=== PATIENT | male | born 1960 | race Caucasian/White ===

== ENCOUNTER 2017-12-12 10:38 | Inpatient (IN) | payer MEDICAID, OTHER ==
[~2017-12-12] VITALS: Ht 170.2 cm; Wt 69.7 kg
[2017-12-12] MEDS ORDERED: PANTOPRAZOLE 80 MG in SODIUM CHLORIDE 0.9% 100 ML IV SCH (10:49)
[2017-12-12] MEDS ORDERED: PANTOPRAZOLE 80 MG in SODIUM CHLORIDE 0.9% 50 ML IVPB ONE (10:49)
[2017-12-12] MEDS ORDERED: SODIUM CHLORIDE FLUSH 10ML SYR IVF ONE (11:00)
[2017-12-12] MEDS ORDERED: SODIUM CHLORIDE 0.9% 1,000ML IVBOLUS ONE (11:00)
[2017-12-12 11:38] LABS: INTERNATIONAL NORMALIZED RATIO 1.49 (0.93-1.1); PROTHROMBIN TIME 15.2 Seconds (9.6-11.5)
[2017-12-12 11:40] LABS: ALANINE AMINOTRANSFERASE 62 U/L (12-78); ALBUMIN 3.6 g/dL (3.4-5.0); ANION GAP 10 mmol/L (5-15); CALCIUM 8.7 mg/dL (8.5-10.1); CHLORIDE 97 mmol/L (98-107)
[2017-12-12 11:42] LABS: ALKALINE PHOSPHATASE 56 U/L (45-117); BILIRUBIN,TOTAL 4.8 mg/dL (0.2-1.0); TOTAL PROTEIN 8.4 g/dL (6.4-8.2)
[2017-12-12 12:04] LABS: BASOPHILS # (AUTO) 0.03 x10^3/uL (0-0.1); BASOPHILS % (AUTO) 1 % (0-1); EOSINOPHILS # (AUTO) 0.01 x10^3/uL (0-0.4); EOSINOPHILS % (AUTO) 0 % (1-7); LYMPHOCYTES # (AUTO) 0.88 x10^3/uL (1-3.4); LYMPHOCYTES % (AUTO) 14 % (22-44); MD SCAN; MEAN CORPUSCULAR HEMOGLOBIN 34.3 pg (27.5-34.5); MEAN CORPUSCULAR HGB CONC 34.5 g/dL (33.2-36.2); MEAN CORPUSCULAR VOLUME 99.4 fL (81-97); MEAN PLATELET VOLUME 9.3 fL (7.4-10.4); MONOCYTES # (AUTO) 0.54 x10^3/uL (0.2-0.8); MONOCYTES % (AUTO) 9 % (2-9); NEUTROPHILS # (AUTO) 4.71 x10^3/uL (1.8-6.8); NEUTROPHILS % (AUTO) 76 % (42-75); RED BLOOD COUNT 3.84 x10^6/uL (4.38-5.82); RED CELL DISTRIBUTION WIDTH 15.1 % (9.4-14.8)
[2017-12-12 12:06] LABS: PLATELET COUNT 45 x10^3/uL (130-400)
[2017-12-12] MEDS ORDERED: ONDANSETRON 2MG/ML, 2ML IVPush PRN (13:00)
[2017-12-12] MEDS ORDERED: PROMETHAZINE 25 MG/ML, 1ML IM PRN (13:00)
[2017-12-12] MEDS ORDERED: THIAMINE 200 MG in SODIUM CHLORIDE 0.9% 50 ML IV ONE (13:30)
[2017-12-12] MEDS: SODIUM CHLORIDE 0.9% 1,000 ML IV SCH ×2 (15:57→23:57)
[2017-12-12] MEDS: NICOTINE 14MG/24 HR PATCH.TD24 TD SCH (16:36)
[2017-12-12] MEDS: PANTOPRAZOLE 80 MG in SODIUM CHLORIDE 0.9% 100 ML IV SCH (16:37)
[2017-12-12 16:53] LABS: TOTAL IRON BINDING CAPACITY 256 mcg/dL (250-450)
[2017-12-12] MEDS ORDERED: LORazepam 1MG TABLET PO PRN (17:00)
[2017-12-12 17:03] LABS: % IRON SATURATION 94 % (20-55); IRON LEVEL 241 mcg/dL (65-175)
[2017-12-12 19:29] VITALS: BP_SYST 83; BP_SYST 85; BP_DIAS 53; BP_DIAS 57
[2017-12-12] MEDS ORDERED: SODIUM CHLORIDE 0.9%, 500ML IVBOLUS ONE (20:00)
[2017-12-12 20:50] VITALS: BP 99/64
[2017-12-13 02:09] VITALS: BP 104/58
[2017-12-13] MEDS: PANTOPRAZOLE 80 MG in SODIUM CHLORIDE 0.9% 100 ML IV SCH (02:47)
[2017-12-13 03:11] LABS: MEAN CORPUSCULAR HEMOGLOBIN 33.9 pg (27.5-34.5); MEAN CORPUSCULAR VOLUME 99.7 fL (81-97); MEAN PLATELET VOLUME 9.5 fL (7.4-10.4); RED BLOOD COUNT 2.89 x10^6/uL (4.38-5.82); RED CELL DISTRIBUTION WIDTH 15.2 % (9.4-14.8)
[2017-12-13 03:13] LABS: PLATELET COUNT 40 x10^3/uL (130-400)
[2017-12-13 03:14] LABS: ALANINE AMINOTRANSFERASE 45 U/L (12-78); ALBUMIN 2.8 g/dL (3.4-5.0); ANION GAP 9 mmol/L (5-15); CALCIUM 7.2 mg/dL (8.5-10.1); CHLORIDE 103 mmol/L (98-107)
[2017-12-13 03:41] LABS: ALKALINE PHOSPHATASE 42 U/L (45-117); TOTAL PROTEIN 6.4 g/dL (6.4-8.2)
[2017-12-13 04:27] LABS: BASOPHILS # (AUTO) 0.04 x10^3/uL (0-0.1); BASOPHILS % (AUTO) 1 % (0-1); EOSINOPHILS # (AUTO) 0.05 x10^3/uL (0-0.4); EOSINOPHILS % (AUTO) 1 % (1-7); LYMPHOCYTES # (AUTO) 1.35 x10^3/uL (1-3.4); LYMPHOCYTES % (AUTO) 25 % (22-44); MD SCAN; MONOCYTES % (AUTO) 9 % (2-9); NEUTROPHILS # (AUTO) 3.48 x10^3/uL (1.8-6.8); NEUTROPHILS % (AUTO) 64 % (42-75)
[2017-12-13 06:50] VITALS: BP 102/64
[2017-12-13 07:21] LABS: FREE T4 (FREE THYROXINE) 0.75 ng/dL (0.76-1.46)
[2017-12-13] MEDS: SODIUM CHLORIDE 0.9% 1,000 ML IV SCH ×2 (08:30→16:14)
[2017-12-13] MEDS: FOLIC ACID 1 MG TABLET PO SCH (09:56)
[2017-12-13] MEDS: THIAMINE 100MG TABLET PO SCH (09:56)
[2017-12-13] MEDS: POTASSIUM CHLORIDE 20 MEQ TAB.ER.PRT PO SCH ×2 (09:56→19:59)
[2017-12-13] MEDS: MULTIVITAMIN 1 TABLET PO SCH (09:56)
[2017-12-13 14:37] VITALS: BP 107/66
[2017-12-13] MEDS: NICOTINE 14MG/24 HR PATCH.TD24 TD SCH (16:08)
[2017-12-13] MEDS: PANTOPRAZOLE 40 MG IV IVPush SCH (16:08)
[2017-12-13] MEDS ORDERED: MOVIPREP POWDER 1 PREP KIT PO SCH (19:00)
[2017-12-13 19:41] VITALS: BP 103/69
[2017-12-13] MEDS: MOVIPREP POWDER 1 PREP KIT PO SCH (19:58)
[2017-12-14 01:24] VITALS: BP 111/72
[2017-12-14] MEDS: SODIUM CHLORIDE 0.9% 1,000 ML IV SCH ×3 (01:37→16:34)
[2017-12-14] MEDS: PANTOPRAZOLE 40 MG IV IVPush SCH ×2 (03:27→14:21)
[2017-12-14] MEDS: LEVOTHYROXINE 25 MCG TABLET PO SCH (06:12)
[2017-12-14 06:49] LABS: ALANINE AMINOTRANSFERASE 53 U/L (12-78); ALBUMIN 2.9 g/dL (3.4-5.0); ANION GAP 8 mmol/L (5-15); CALCIUM 7.5 mg/dL (8.5-10.1); CHLORIDE 106 mmol/L (98-107); CREATININE 0.48 mg/dL (0.7-1.3)
[2017-12-14 06:50] LABS: ALKALINE PHOSPHATASE 44 U/L (45-117); BILIRUBIN,TOTAL 2.3 mg/dL (0.2-1.0); TOTAL PROTEIN 6.4 g/dL (6.4-8.2)
[2017-12-14 06:58] VITALS: BP 112/72
[2017-12-14] MEDS: THIAMINE 100MG TABLET PO SCH (07:48)
[2017-12-14] MEDS: FOLIC ACID 1 MG TABLET PO SCH (07:48)
[2017-12-14] MEDS: MOVIPREP POWDER 1 PREP KIT PO SCH (07:48)
[2017-12-14] MEDS: MULTIVITAMIN 1 TABLET PO SCH (07:48)
[2017-12-14 08:31] LABS: MEAN CORPUSCULAR HEMOGLOBIN 34.6 pg (27.5-34.5); MEAN CORPUSCULAR HGB CONC 34.4 g/dL (33.2-36.2); MEAN CORPUSCULAR VOLUME 100.5 fL (81-97); MEAN PLATELET VOLUME 7.9 fL (7.4-10.4); PLATELET COUNT 53 x10^3/uL (130-400); RED BLOOD COUNT 2.63 x10^6/uL (4.38-5.82); RED CELL DISTRIBUTION WIDTH 15.5 % (9.4-14.8)
[2017-12-14 08:33] LABS: BASOPHILS # (AUTO) 0.04 x10^3/uL (0-0.1); BASOPHILS % (AUTO) 1 % (0-1); EOSINOPHILS # (AUTO) 0.04 x10^3/uL (0-0.4); EOSINOPHILS % (AUTO) 1 % (1-7); LYMPHOCYTES % (AUTO) 24 % (22-44); MD SCAN; MONOCYTES # (AUTO) 0.39 x10^3/uL (0.2-0.8); MONOCYTES % (AUTO) 13 % (2-9); NEUTROPHILS # (AUTO) 1.76 x10^3/uL (1.8-6.8); NEUTROPHILS % (AUTO) 60 % (42-75)
[2017-12-14] MEDS: NICOTINE 14MG/24 HR PATCH.TD24 TD SCH (11:52)
[2017-12-14] MEDS ORDERED: MIDAZOLAM 1 MG/ML, 2ML ONE (13:11)
[2017-12-14] MEDS ORDERED: FENTANYL PF 100 MCG/2ML ONE (13:11)
[2017-12-14] MEDS ORDERED: PROPOFOL 50 ML ONE (13:12)
[2017-12-14] MEDS ORDERED: OXYcodone 5 MG/5 ML ORAL.SOL UDC PO PRN (13:30)
[2017-12-14] MEDS ORDERED: PROMETHAZINE 25 MG/ML, 1ML IV PRN (13:30)
[2017-12-14] MEDS ORDERED: MEPERIDINE/PF 25MG/0.5ML IVPush PRN (13:30)
[2017-12-14] MEDS ORDERED: FENTANYL PF 100 MCG/2ML IV PRN (13:30)
[2017-12-14] MEDS ORDERED: LORazepam 2 MG/ML, 1ML IVPush PRN (13:30)
[2017-12-14] MEDS ORDERED: HYDROmorphone 1 MG/ML, 1ML IV PRN (13:30)
[2017-12-14] MEDS ORDERED: ONDANSETRON 2MG/ML, 2ML IV PRN (13:30)
[2017-12-14 14:25] VITALS: BP 122/74
[2017-12-14 16:25] VITALS: BP 136/79
[2017-12-14 19:22] VITALS: BP 100/68
[2017-12-15 01:32] VITALS: BP 106/74
[2017-12-15] MEDS: LEVOTHYROXINE 25 MCG TABLET PO SCH (05:08)
[2017-12-15] MEDS: SODIUM CHLORIDE 0.9% 1,000 ML IV SCH (05:11)
[2017-12-15 07:24] VITALS: BP 116/73
[2017-12-15] MEDS ORDERED: PANTOPROZOLE 40MG TABLET PO SCH (07:30)
[2017-12-15] MEDS: THIAMINE 100MG TABLET PO SCH (08:41)
[2017-12-15] MEDS: MULTIVITAMIN 1 TABLET PO SCH (08:41)
[2017-12-15] MEDS: FOLIC ACID 1 MG TABLET PO SCH (08:41)
[2017-12-15 09:15] LABS: MICROSCOPIC NOT IND
[2017-12-15 09:19] LABS: CULTURE INDICATED? NO
[2017-12-15] MEDS ORDERED: LEVO25TA2 PO (10:10)
== END 2017-12-15 13:35 | disposition home or self-care (01) | DRG 432 ==
LOC: ED 12:30 → EDIP 12:31 → 4WST 13:50 → 3NE 12-15 05:51 → DCLOUNGE 12-15 13:27
PROVIDERS: ADMIT Internal Medicine; ATTEND Internal Medicine
PROC: 05H933Z Insertion of Infusion Device into Right Brachial Vein, Percutaneous Approach (ICD-10-PCS; principal; 2017-12-12)
PROC: B51M1ZA Fluoroscopy of Right Upper Extremity Veins using Low Osmolar Contrast, Guidance (ICD-10-PCS; 2017-12-12)
PROC: B54MZZA Ultrasonography of Right Upper Extremity Veins, Guidance (ICD-10-PCS; 2017-12-12)
PROC: 0DJDXZZ Inspection of Lower Intestinal Tract, External Approach (ICD-10-PCS; 2017-12-14)
PROC: 0DJD8ZZ Inspection of Lower Intestinal Tract, Via Natural or Artificial Opening Endoscopic (ICD-10-PCS; 2017-12-14)
PROC: 0DJ08ZZ Inspection of Upper Intestinal Tract, Via Natural or Artificial Opening Endoscopic (ICD-10-PCS; 2017-12-14)
DX: K70.30 Alcoholic cirrhosis of liver without ascites (principal); I85.11 Secondary esophageal varices with bleeding; K57.31 Diverticulosis of large intestine without perforation or abscess with bleeding; E87.1 Hypo-osmolality and hyponatremia; K76.6 Portal hypertension; F10.239 Alcohol dependence with withdrawal, unspecified; D53.9 Nutritional anemia, unspecified; E03.9 Hypothyroidism, unspecified; Y90.0 Blood alcohol level of less than 20 mg/100 ml; D69.6 Thrombocytopenia, unspecified; R73.9 Hyperglycemia, unspecified; F17.210 Nicotine dependence, cigarettes, uncomplicated; Z79.899 Other long term (current) drug therapy; Z23 Encounter for immunization; Z80.0 Family history of malignant neoplasm of digestive organs; Z82.3 Family history of stroke; Z82.49 Family history of ischemic heart disease and other diseases of the circulatory system
CPT/HCPCS: 36415; 36569; 76700; 76937; 77001; 80053; 81003; 82105; 82607; 83540; 83550; 83690; 83735; 84439; 84443; 85014; 85018; 85025; 85610; 85730; 86038; 86704; 86706; 86708; 86803; 86850; 86900; 87340; 90656; 93005; 93975; 99285; G0378; J2250; J2405; J2704; J3010; J3411; C1751; C9113; J7030; J7040